=== PATIENT | male | born 1995 | race Caucasian/White ===

== ENCOUNTER 2024-01-25 12:17 | Inpatient (IN) ==
--- NOTE | 2024-01-25 12:56 | Emergency Department Note ---
Impression & Plan Psychosis, Agitation ED Provider Note NAME: BLAISE AMBRIZ AGE: 29 SEX: M : 1995 ARRIVES VIA: Ambulance INFORMANT: [Patient][roommate] ED PROVIDER(S): [Hector Mckeon MD] CHIEF COMPLAINT: Mental health evaluation HISTORY OF PRESENT ILLNESS: The patient is a 29-year-old male who has ADHD. He seemed fine this past weekend. As per his roommate, for 2 days, he has been acting bizarre, he has had some strange behavior. Today, he answered the door naked when the cleaning lady arrived. He made some bizarre comments and the police were called. The patient is unable to provide any history. He is asking to leave. He cannot understand why he is here. He seems agitated and a bit manic. He has been so for uncooperative with the ED staff with regard to laboratory testing. As per his roommate, he did recently switch his ADH meds, no other med changes that he is aware of. No illicit drug use that he is aware of. The patient does socially use alcohol but not heavily. There has been no reported trauma. PMHx/PSHx/Social Hx: See Below PHYSICAL EXAM: GENERAL: Patient is in no acute distress. HEENT: No acute trauma, normocephalic atraumatic, mucous membranes moist, no nasal congestion. NECK: No stridor, no adenopathy, no meningismus, trachea is midline. LUNGS: Clear to auscultation bilaterally, no wheeze, no rhonchi, breath sounds equal. HEART: Without murmurs gallops or rubs, regular rate and rhythm. ABDOMEN: Soft, nontender, no peritonitis. EXTREMITIES: No cyanosis, full range of motion of all the joints without pain or difficulty. NEUROLOGIC: Awake and alert, no acute motor or sensory deficits, no focal weakness. SKIN: No jaundice, no diaphoresis. Psychiatric: Agitated, slightly manic, unable to answer questions or cooperate with the exam. DIFFERENTIAL DIAGNOSIS: Psychosis, medication reaction, intracranial injury, drug abuse, alcohol abuse, among others. EMERGENCY DEPARTMENT PROCEDURES: MEDICAL DECISION MAKING: There is no leukocytosis or concerning anemia. There is a normal platelet count. No renal failure or significant electrolyte abnormality. No concerning liver enzyme elevation. The patient appears to be in a euthyroid state. Urinalysis shows some dehydration, no infection. Aspirin, Tylenol and alcohol levels were undetectable. Urine tox was negative. COVID test was negative. Brain CT showed no acute bleed or mass effect. The patient was quite agitated and was demonstrating psychosis. He did consent to taking oral Haldol and oral Ativan. After this medication, he slept. A 302 petition was initiated given the aggressive behavior and psychosis. When the Haldol and Ativan wore off, the patient awoke and was back to his mental baseline. He was cooperative, he was unsure what exactly had happened. He felt better after sleeping. The patient did feel the need for a psychiatric hospitalization, he did not feel safe with discharge home. He did sign into the hospital voluntarily. The 302 petition was of course then denied. The patient was seen by our psychiatric services, [facility] they accepted him as a voluntary psychiatric admission to their floor. Prior/Outside records/notes reviewed: None Imaging/x-ray results per my interpretation: Chronic Medical/Social conditions affecting care: None Care/Management discussed with: Psychiatry case management. Level of care consideration(s): After review of the information above and other included data: --I believe the patient requires escalation of care to admission DISPOSITION: Voluntary psychiatric admission Past Med/Surg History Problem List (Updated 01/25/24 @ 18:17 by Hector Mckeon MD) Agitation (Acute) Psychosis (Acute) Medical History ADHD Social History Smoking Status: Current every day smoker Feels Safe at Home: Yes Gender Identity: Male Results & Data (ED) Vital Signs Vital Signs - 24 hr 01/25/24 12:20 01/25/24 15:45 Temperature 36.8 C 36.5 C Temperature Source Oral Oral Pulse Rate 110 H Pulse Rate [Apical] 88 Pulse Rhythm [Apical] Regular Pulse Strength [Apical] Normal Respiratory Rate 20 18 Respiratory Effort / Characteristics Non-Labored Non-Labored Respiratory Depth Normal Normal Respiratory Pattern Regular Blood Pressure 153/83 H Blood Pressure [Left Arm] 125/72 Blood Pressure Mean 106 Blood Pressure Mean [Left Arm] 89 Blood Pressure Position [Left Arm] Lying Pulse Oximetry 96 97 Oxygen Delivery Method Room Air Room Air Sepsis Recent Fever Within 48 Hours No Sepsis New/Unexplained Change in Mental Status No Sepsis Action Taken by Nursing No Action Required Home Medications Current Medication List: was personally reviewed by me Laboratory Data Attestation: I reviewed the patient's lab results. 01/25/24 12:05 01/25/24 12:05 Lab Results 01/25/24 01/25/24 Range/Units 12:05 12:30 WBC 9.18 (4.8-10.8) K/ul RBC 5.50 (4.70-6.10) M/uL Hgb 16.7 (14.0-18.0) g/dl Hct 46.9 (42.0-52.0) % MCV 85.3 (80.0-100.0) fL MCH 30.4 (25.0-34.0) pg MCHC 35.6 (32.0-36.0) g/dL RDW Std Deviation 36.0 L (36.4-46.3) fL RDW Coeff of Roderick 11.6 (11.5-14.5) % Plt Count 297 (130-400) K/uL MPV 9.8 (9.4-12.4) fL Immature Gran % (Auto) 0.2 % Neut % (Auto) 64.0 % Lymph % (Auto) 27.2 % [place] % (Auto) 8.1 % Eos % (Auto) 0.1 % Baso % (Auto) 0.4 % Neut # (Auto) 5.87 (1.40-6.50) K/uL Lymph # (Auto) 2.50 (1.20-3.40) K/uL [place] # (Auto) 0.74 H (0.11-0.59) K/uL Eos # (Auto) 0.01 (0.00-0.50) K/uL Baso # (Auto) 0.04 (0.00-0.20) K/uL Immature Gran # (Auto) 0.02 (0.01-0.20) K/uL Sodium 136 (136-145) mmol/L Potassium 3.6 (3.5-5.1) mmol/L Chloride 102 (98-107) mmol/L Carbon Dioxide 27 (21-32) mmol/L Anion Gap 7 (3-11) BUN 12 (6-23) mg/dl Creatinine 0.95 (0.6-1.4) mg/dl Est Cr Clr Drug Dosing 130.5 ml/min eGFR 112.51 BUN/Creatinine Ratio 12.6 (10-20) Glucose 108 H (70-99(Fasting)) mg/dl Calcium 10.4 H (8.6-10.3) mg/dl Total Bilirubin 1.2 H (0.2-1.0) mg/dl AST 25 (13-39) U/L ALT 22 (7-52) U/L Alkaline Phosphatase 55 (34-104) U/L Total Protein 8.5 H (6.0-8.3) gm/dl Albumin 5.3 H (3.4-5.0) gm/dl Globulin 3.2 (2.5-4.0) gm/dl Albumin/Globulin Ratio 1.7 (0.9-2) TSH 3.408 (0.300-4.500) uIu/ml Urine Color Yellow Urine Appearance Clear (Clear) Urine pH 7.5 (4.5-7.5) Ur Specific [place] 1.025 (1.000-1.030) Urine Protein Trace H (Negative) Urine Glucose (UA) Negative (Negative) Urine Ketones Trace H (Negative) Urine Blood Negative (Negative) Urine Nitrite Negative (Negative) Urine Bilirubin Negative (Negative) Urine Urobilinogen Negative (Negative) Ur Leukocyte Esterase Trace H (Negative) Urine WBC (Auto) 0-5 (0-5) /hpf Urine RBC (Auto) 0-2 (0-2) /hpf U Hyaline Cast (Auto) 0-2 (0-2) /lpf U Epithel Cells (Auto) 0-2 (0-2) /hpf Urine Bacteria (Auto) None Seen (None Seen) Salicylates < 3.0 L (3.0-30) mg/dl Urine Opiates Screen Neg (Neg) Ur Methadone, Qual Neg (Neg) Urine Fentanyl Screen Neg (Neg) Acetaminophen < 3 L (10-30) ug/ml Urine Barbiturates Neg (Neg) Ur Phencyclidine (PCP) Neg (Neg) U Amphetamin/Meth Scrn Neg (Neg) MDMA (Ecstasy) Screen Neg (Neg) U Benzodiazepines Scrn Neg (Neg) Ur Cocaine Metabolite Neg (Neg) U Marijuana (THC) Screen Neg (Neg) Ethyl Alcohol mg/dL < 10.0 (<10.0) mg/dl SARS-CoV-2, RNA, NAAT NEGATIVE (NEGATIVE) Administered Medications Acetaminophen (Acetaminophen 325 Mg Tab) 650 mg PO Q4H PRN PRN Reason: Headache or Minor Fever Stop: 02/24/24 16:59 Last Admin: 01/25/24 18:01 Dose: 650 mg Documented By: RB Discontinued Medications Haloperidol (Haloperidol 5 Mg Tab) 10 mg PO NOW STA Stop: 01/25/24 12:49 Last Admin: 01/25/24 13:18 Dose: 10 mg Documented By: HB Lorazepam (Lorazepam 1 Mg Tab) 1 mg SL NOW STA Stop: 01/25/24 12:49 Last Admin: 01/25/24 13:18 Dose: 1 mg Documented By: HB Imaging Data Radiologist's Impression: Head CT 01/25/24 12:48 EXAM: CT Head Without Intravenous Contrast INDICATION: Altered mental status. TECHNIQUE: Axial computed tomography images of the head/brain without intravenous contrast. Sagittal and/or coronal reformats are provided. Sagittal and coronal reformatted images were created and reviewed. This CT exam was performed using one or more of the following dose reduction techniques: automated exposure control, adjustment of the mA and/or kV according to patient size, and/or use of iterative reconstruction technique. COMPARISON: No relevant prior studies available. FINDINGS: Limitations: Streak artifact limits assessment particularly of the convexity. Brain and extra-axial spaces: No abnormality noted. No hemorrhage. No significant white matter disease. No edema. No ventriculomegaly. Bones/joints: No acute changes. Soft tissues: No significant abnormality noted. Vasculature: No acute abnormality noted. Sinuses: No layering fluid in the visualized portions of the paranasal sinuses. Mastoid air cells: No mastoid effusion. Orbits: No significant abnormality noted. IMPRESSION: Allowing for slight limitation, no abnormality noted. ACT 112: Negative or not required by law. Electronically signed by Margaret Odell 01-25-2024 3:02 PM Discharge Plan Visit Data Chief Complaint: Mental Health Evaluation Stated Complaint: MHE ED Provider: Hector Mckeon Discharge Problem: Psychosis, Agitation Patient Disposition: Admitted As Inpatient Condition: Good Discharge Instructions Interventions: ED Discharge Assessment Last Done: 01/25/24 17:16 Discharge Problem: Psychosis Qualifiers: Psychosis type: unspecified psychosis type Qualified Code(s): F29 - Unspecified psychosis not due to a substance or known physiological condition
[2024-01-25 13:07] LABS: Appearance Urine Clear (Clear); Bacteria Urine Automated None Seen (None Seen); Bilirubin Urine Negative (Negative); Blood Urine Negative (Negative); Cast Urine Automated 0-2 /lpf (0-2); Color Urine Yellow; Epithelial Cell Urine Auto 0-2 /hpf (0-2); Glucose Urine UA Negative (Negative); Ketones Urine Trace (Negative); Leukocyte Esterase Urine Trace (Negative); Nitrite Urine Negative (Negative); Protein Urine Trace (Negative); RBC Urine Automated 0-2 /hpf (0-2); Specific Gravity Urine 1.025 (1.000-1.030); Urobilinogen Urine Negative (Negative); WBC Urine Automated 0-5 /hpf (0-5); pH Urine 7.5 (4.5-7.5)
[2024-01-25] MEDS: haloperidoL 5 MG TAB PO STA (13:18)
[2024-01-25] MEDS: LORazepam 1 MG TAB SL STA (13:18)
[2024-01-25 13:33] LABS: Amphetamines+Metham, Urine Neg (Neg); Barbiturates, Urine Neg (Neg); Benzodiazepine, Urine Neg (Neg); Cocaine, Urine Neg (Neg); Fentanyl, Urine Neg (Neg); MDMA (Ecstacy), Urine Neg (Neg); Marijuana, Urine Neg (Neg); Methadone, Urine Neg (Neg); Opiate, Urine Neg (Neg); Phencyclidine, Urine Neg (Neg)
[2024-01-25 14:28] LABS: Basophils # (auto) 0.04 K/uL (0.00-0.20); Basophils % (auto) 0.4 %; Eosinophils # (auto) 0.01 K/uL (0.00-0.50); Eosinophils % (auto) 0.1 %; Hematocrit (blood only) 46.9 % (42.0-52.0); Hemoglobin 16.7 g/dl (14.0-18.0); Immature Granulocytes # (auto) 0.02 K/uL (0.01-0.20); Immature Granulocytes % (auto) 0.2 %; Lymphocytes % (auto) 27.2 %; Mean Corpuscular Hemoglobin 30.4 pg (25.0-34.0); Mean Corpuscular Hgb Conc 35.6 g/dL (32.0-36.0); Mean Corpuscular Volume 85.3 fL (80.0-100.0); Mean Platelet Volume 9.8 fL (9.4-12.4); Monocytes # (auto) 0.74 K/uL (0.11-0.59); Monocytes % (auto) 8.1 %; Neutrophils # (auto) 5.87 K/uL (1.40-6.50); Platelet Count 297 K/uL (130-400); RDW Coefficient of Variation 11.6 % (11.5-14.5); White Blood Count 9.18 K/ul (4.8-10.8)
[2024-01-25 14:42] LABS: Albumin Globulin Ratio 1.7 (0.9-2); Albumin Level 5.3 gm/dl (3.4-5.0); BUN Creatinine Ratio 12.6 (10-20); Bilirubin,Total 1.2 mg/dl (0.2-1.0); Calcium 10.4 mg/dl (8.6-10.3); Creatinine Clr Calc Pharmacy 130.5 ml/min; Globulin 3.2 gm/dl (2.5-4.0); Potassium 3.6 mmol/L (3.5-5.1); Total Protein 8.5 gm/dl (6.0-8.3)
[2024-01-25 14:48] LABS: Acetaminophen < 3 ug/ml (10-30); Salicylate < 3.0 mg/dl (3.0-30)
[2024-01-25 14:57] LABS: Thyroid Stimulating Hormone 3.408 uIu/ml (0.300-4.500)
--- NOTE | 2024-01-25 15:02 | CT Scan Report ---
EXAM: CT Head Without Intravenous Contrast INDICATION: Altered mental status. TECHNIQUE: Axial computed tomography images of the head/brain without intravenous contrast. Sagittal and/or coronal reformats are provided. Sagittal and coronal reformatted images were created and reviewed. This CT exam was performed using one or more of the following dose reduction techniques: automated exposure control, adjustment of the mA and/or kV according to patient size, and/or use of iterative reconstruction technique. COMPARISON: No relevant prior studies available. FINDINGS: Limitations: Streak artifact limits assessment particularly of the convexity. Brain and extra-axial spaces: No abnormality noted. No hemorrhage. No significant white matter disease. No edema. No ventriculomegaly. Bones/joints: No acute changes. Soft tissues: No significant abnormality noted. Vasculature: No acute abnormality noted. Sinuses: No layering fluid in the visualized portions of the paranasal sinuses. Mastoid air cells: No mastoid effusion. Orbits: No significant abnormality noted. IMPRESSION: Allowing for slight limitation, no abnormality noted. ACT 112: Negative or not required by law. Electronically signed by Margaret Odell 01-25-2024 3:02 PM
[2024-01-25] MEDS ORDERED: SODIUM CHLORIDE 0.65% NA SOLN 45 ML (OCEAN) PRN (17:00)
[2024-01-25] MEDS ORDERED: MAGNESIUM HYDROXIDE SUSP 30 ML UDC PO PRN (17:00)
[2024-01-25] MEDS ORDERED: ALUMINUM/MAGNESIUM SUSP 30 ML UDC PO PRN (17:00)
[2024-01-25] MEDS ORDERED: BISMUTH SUBSALICYLATE 262 MG CHEW PO PRN (17:00)
[2024-01-25] MEDS: ACETAMINOPHEN 325 MG TAB PO PRN (18:01)
[2024-01-25] MEDS: OLANZapine 5 MG TABLET PO PRN (19:55)
[2024-01-26] MEDS ORDERED: OLANZAPINE 2.5 MG TAB PO PRN (09:27)
--- NOTE | 2024-01-26 09:28 | History & Physical ---
Date of Service January 26, 2024 Impression / Recommendations Impression FELICIANO AMBRIZ is a 29-year-old man who currently lives in [place], has a history of anxiety, depression and ADHD, and was admitted on 01/25/24 17:01 on a 201 voluntary commitment for bizarre behavior, concern for acute gregory. Diagnostically consistent with unspecified psychosis with differential including acute manic episode 2/2 BPAD vs brief psychotic episode vs substance-induced psychosis (denies any recent illicit substance use and UDS negative but reports nicotine use and wonder about delta 8). This morning had episode of lightheadedness and possible pre-syncopal event, BP and HR were low and so out of an abundance of caution rapid response code was called. By the time the code team arrived his HR had significantly improved. Discussed with medical providers and consensus that presentation very likely due to orthostatic hypotension from side effect of haldol, ativan and then olanzapine prn dose last evening and seemingly limited recent sleep and self- care due to psychiatric symptoms. EKG done which showed sinus bradycardia, labwork and ED workup yesterday reassuring, blood glucose checked and normal. Feliciano feels comfortable remaining on the psychiatric floor and no indication at this time for need nor criteria for medical admission. Will continue with frequent vital sign assessments and he agrees to remain in bed and drink electrolyte beverages. Given orthostatic hypotension and some improvement in psychosis today after sleeping overnight will not start any scheduled medications for now. Should BP or HR drop again then will consult hospitalist service and re-evaluate criteria for medical admission. Discussed medication treatment options in detail and reason for discontinuation of SSRI and atomoxetine due to potential to worsen and trigger episodes of gregory and discontinuation of prior to admission propranolol due to low BP mid-morning (he did not get a dose last evening nor today either). He is agreeable with this. Will have very low dose olanzapine available should acute agitation/aggression occur but with goal of avoiding use if possible given orthostatic response this morning. MNPR-psychosis with hypersexual comments, recent disrobing prompting admission Overall I spent a total of 85 minutes for this admission including review of chart records, review of labwork, direct evaluation of the patient, counseling the patient, ordering medication, risk assessment, discussion with the psychiatric liason RN and documentation in the electronic health record and discussion with medical providers as part of rapid response code. (1) Psychosis: Psychosis type: unspecified psychosis type Qualified Code(s): F29 - Unspecified psychosis not due to a substance or known physiological condition (2) Hypersexuality: (3) Agitation: (4) Insomnia: (5) Orthostatic hypotension: (6) Bradycardia: (7) Bipolar I disorder with gregory: Plan 01/26/2024: The patient was admitted to the [facility] ([facility]) on q15 min checks (behavioral with suicide precautions) for safety. The patient will participate in group, recreational, and milieu therapies and will be offered additional individual and family sessions as clinically appropriate. -Discontinue prior to admission sertraline, atomoxetine and propranolol -olanzapine 2.5mg BID po prn for acute agitation/aggression -Vital signs t2kverc for next 12 hours and then back to daily vital signs if he continues to show stability -continue to monitor intake, encourage fluids. Counseled on need to change positions slowly which he is agreeable to do, has call horvath to alert nursing to any needs -Low threshold for hospitalist consult should clinical symptoms change or vital sign abnormalities emerge Inventory Assets Strengths: supportive relationships, willing to get treatment Needs: safety and stabilization, medication adjustment, additional coping skills, increased outpatient services Suicide Risk Level Suicide Risk Level: Moderate (q15 min suicide checks) (denies SI but with psychosis and bizarre behaviors prior to admission, feels safe in the hospital, feels able to ask for support ) Suicide Risk Level Comments: Risk Factors Assessment Male: Yes : Yes Do You Have Access To A Gun?: No Health Problems: No Mental Health Diagnoses: Yes Substance Use Disorders: No Previous Attempt: No Family History of Suicide: No Previous Psychiatric Hospitalization: No Hopelessness: No Protective Factors Assessment Employed: Yes ([employer]) Stable Relationships: Yes Supportive Family: Yes Psychiatric History Identifying Data FELICIANO AMBRIZ is a 29-year-old man who currently lives in [place], has a history of anxiety, depression and ADHD, and was admitted on 01/25/24 17:01 on a 201 voluntary commitment for bizarre behavior, concern for acute gregory. Chief Complaint "I don't remember a ton, I was losing my mind a little bit". History of Present Illness Feliciano presents for psychiatric admission for sudden bizarre behavior after a few days of very poor sleep. He doesn't have much memory of events leading to hospitalization but recalls that his roommate was there and then police arrived. He confirms making some type of sexual comment to a cleaning lady who came to his apartment and that later her came to the door and he answered the d oor while nude and this man took a picture of him. He recalls only sleeping about an hour per night on Tuesday and Tuesday prior to admission. Denies any significant recent stressors. Only recent change was increase of his sertraline dose from 25mg daily to 50mg daily on 01/20/2024 and he was also started on atomoxetine at that time. While in the emergency department he was observed to be agitated and with symptoms of gregory and was given haldol and ativan with quite significant improvement. This morning, he reported increased lightheadedness and was observed to have low BP and low heart rate. He reported feeling sedated and faint but denied any other complaints. He drank more water and ate some food and started to feel better. He was agreeable with lying in his bed and was glad to be able to sleep and rest more. He is currently prescribed psychiatric medications of sertraline 50mg daily, propranolol prn for anxiety and atomoxetine. Psychiatric ROS notable for history of symptoms of gregory and psychosis about 3 years ago, he describes for about a week he thought "God was telling me to break up with my fiance and I didn't sleep much and I went on kind of christianity fast for a week without eating" but then his symptoms resolved without requiring hospitalization. Depression started in college, long history of anxiety. Additional information per ED CM note on 01/25/2024: "Patient reports to ED via EMS with roommate. Patient uncooperative with Dr. Mckeon. Per EMS report, patient answered the door for the cleaning lady naked, making inappropriate sexual comments to her. Patient spoke with cleaning lady's and informed him that his was patient's now. Patient's roommate was present. Reports patient's behaviors have been "off" for a few days now, he has been living with patient for 1.5 years and his current behaviors are unusual for him. Per roommate, patient's ADHD medication was just changed. Patient interrupted roommate as he was trying to explain patient's current situation. Patient appeared manic and tangential. Patient denied D/A use currently. Patient stated several times he "has no idea what's going on." He states he felt like this whole experience was "like a dance." Patient denies any current health issues. He denies any current stressors. Patient was religiously preoccupied. He stated his mother was on her way, but that she lives in the [facility]. He then stated he felt better being in the presence of CM and his roommate as he felt he was with the "Father, son and holy spirit." " Additional information per psych liason plastic surgeon note last evening on 01/25/2024: "Patient up and out of bed. Asking this nurse what he was able to do? Gave tour of activity room and while showing patient the activities, he said, "I feel weird asking this but is there anyway I could have my sexual needs met here? "Is there a way you could do that for me? Patient redirected and medication given by charge nurse." Past Psychiatric History Current Psychiatric Diagnosis: Depression, Anxiety, ADHD Outpatient Services: Seema Dale for psychiatry at [facility]. Therapy with Izaiah at [facility]. Previous Psych Admissions: none Do You Have Access To A Gun?: No History of Previous Suicide Attempt: No Past Medication Trials: none Past Head Trauma/Neuro History History of Concussion/Seizure: No Allergies Allergy/AdvReac Type Severity Reaction Status Date / Time No Known Allergies Allergy Unverified 01/26/24 12:16 Home Medications Medication Instructions Recorded Confirmed Type atomoxetine 25 mg capsule 25 mg PO DAILY 01/26/24 01/26/24 History propranolol 10 mg tablet 10 mg PO BID 01/26/24 01/26/24 History sertraline 50 mg tablet (Zoloft) 50 mg PO DAILY 01/26/24 01/26/24 History Family History Family History of: Depression and Doesn't Know Family Mental Health History Comment: Feels mother has MH issues but does not know Alcohol History Hx of Alcohol Use Over the Past 12 Months: No AUDIT Total Score: 1 Smoking Use Have You Smoked or Used Tobacco Products in the Last 30 Days: Refused to Answer Smoking Status: Current every day smoker Substance History Hx of Prescription Med Misuse Over the Past 12 Months: No Hx of Over the Counter Med Misuse Over the Past 12 Months: No Hx of Inhalent Misuse Over the Past 12 Months: No Hx of Organic Substance Use Over the Past 12 Months: No Hx of Illegal Substances/Street Drug Use Over Past 12 Months: No Problems as a Result of Past Substance Use: None Identified Personal History Living Arrangements: Apartment Highest Grade Completed: College 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) Beliefs That Will Affect Care: None Patient History Medical History ADHD Social History Smoking Status: Current every day smoker Preferred Language: Surinamese Communication Ability: Effective Humanities Teacher Required: No Beliefs That Will Affect Care: None Feels Safe at Home: Yes Gender Identity: Male Assistive Devices: None Review of Systems Review of Systems: All systems reviewed & are unremarkable except as noted in HPI & below Physical Exam Psychiatric: Orientation: alert and oriented x 3 Apperance: appropriately dressed and appropriately groomed Eye Contact: good eye contact Motor Behavior: no abnormal motor movements Speech: normal rate/rhythm/volume of speech Affect: + anxious affect and + constricted affect Mood: + anxious mood Thought Process: + looseness of associations Thought Content: + preoccupation (sexual ) and + delusions Suicidal Thoughts: denies suicidal thoughts, denies suicidal plan and denies suicidal intent Homicidal Thoughts: denies homicidal thoughts Hallucinations: no auditory hallucinations and no visual hallucinations Cognition: recent memory grossly intact, remote memory grossly intact, attention grossly intact and language grossly intact Estimated Intelligence: consistent with education level Insight: + limited insight Judgment: + limited judgement Vital Signs (Past 24 Hours): Last Vital Signs Temp 36.8 C 01/26/24 06:43 Pulse 87 01/26/24 06:47 Resp 16 01/26/24 06:43 BP 143/82 H 01/26/24 06:47 Pulse Ox 99 01/25/24 18:18 O2 Del Method Room Air 01/25/24 18:18 Exam Statement: A physical exam was performed in the ED by Dr. Mckeon for the purposes of medical clearance. I accept that physical as correct and adequate for the purposes of the inpatient physical exam. Results & Data ([facility]) Laboratory Results Laboratory Results - last 24 hr 01/25/24 01/25/24 01/26/24 12:05 12:30 09:11 WBC 9.18 RBC 5.50 Hgb 16.7 Hct 46.9 MCV 85.3 MCH 30.4 MCHC 35.6 RDW Std Deviation 36.0 L RDW Coeff of Roderick 11.6 Plt Count 297 MPV 9.8 Immature Gran % (Auto) 0.2 Neut % (Auto) 64.0 Lymph % (Auto) 27.2 Burke % (Auto) 8.1 Eos % (Auto) 0.1 Baso % (Auto) 0.4 Neut # (Auto) 5.87 Lymph # (Auto) 2.50 Burke # (Auto) 0.74 H Eos # (Auto) 0.01 Baso # (Auto) 0.04 Immature Gran # (Auto) 0.02 Sodium 136 Potassium 3.6 Chloride 102 Carbon Dioxide 27 Anion Gap 7 BUN 12 Creatinine 0.95 Est Cr Clr Drug Dosing 130.5 eGFR 112.51 BUN/Creatinine Ratio 12.6 Glucose 108 H POC Glucose 102 H Calcium 10.4 H Total Bilirubin 1.2 H AST 25 ALT 22 Alkaline Phosphatase 55 Total Protein 8.5 H Albumin 5.3 H Globulin 3.2 Albumin/Globulin Ratio 1.7 TSH 3.408 Urine Color Yellow Urine Appearance Clear Urine pH 7.5 Ur Specific [place] 1.025 Urine Protein Trace H Urine Glucose (UA) Negative Urine Ketones Trace H Urine Blood Negative Urine Nitrite Negative Urine Bilirubin Negative Urine Urobilinogen Negative Ur Leukocyte Esterase Trace H Urine WBC (Auto) 0-5 Urine RBC (Auto) 0-2 U Hyaline Cast (Auto) 0-2 U Epithel Cells (Auto) 0-2 Urine Bacteria (Auto) None Seen Salicylates < 3.0 L Urine Opiates Screen Neg Ur Methadone, Qual Neg Urine Fentanyl Screen Neg Acetaminophen < 3 L Urine Barbiturates Neg Ur Phencyclidine (PCP) Neg U Amphetamin/Meth Scrn Neg MDMA (Ecstasy) Screen Neg U Benzodiazepines Scrn Neg Ur Cocaine Metabolite Neg U Marijuana (THC) Screen Neg Ethyl Alcohol mg/dL < 10.0 SARS-CoV-2, RNA, NAAT NEGATIVE Current Inpatient Medications Current Inpatient Medications: Current Inpatient Medications Acetaminophen (Acetaminophen 325 Mg Tab) 650 mg PO Q4H PRN PRN Reason: Headache or Minor Fever Stop: 02/24/24 16:59 Last Admin: 01/25/24 18:01 Dose: 650 mg Al Hydrox/Mg Hydrox/Simethicone (Aluminum/Magnesium Susp 30 Ml Udc) 30 ml PO Q4H PRN PRN Reason: GI Upset Stop: 02/24/24 16:59 Bismuth Subsalicylate (Bismuth Subsalicylate 262 Mg Chew) 2 tab PO Q30M PRN PRN Reason: Loose Stool/Diarrhea Stop: 02/24/24 16:59 Hydroxyzine HCl (Hydroxyzine Hcl 25 Mg Tab) 50 mg PO HSZ PRN PRN Reason: Insomnia Stop: 02/24/24 16:59 Hydroxyzine HCl (Hydroxyzine Hcl 25 Mg Tab) 25 mg PO Q4H PRN PRN Reason: Anxiety Stop: 02/24/24 16:59 Magnesium Hydroxide (Magnesium Hydroxide Susp 30 Ml Udc) 30 ml PO DAILY PRN PRN Reason: Constipation Stop: 02/24/24 16:59 Olanzapine (Olanzapine 2.5 Mg Tab) 2.5 mg PO BID PRN PRN Reason: Agitation Stop: 02/24/24 20:59 Sodium Chloride (Sodium Chloride 0.65% Na Soln 45 Ml ([place])) 1 - 2 sprays NA PRN PRN PRN Reason: Nasal Dryness/Congestion Stop: 02/24/24 16:59
--- OUTSIDE RECORDS SUMMARY | 2024-01-26 11:36 | External Medical Summary | Continuity of Care Document ---
Author Name Unknown Organization [address] Address [address] [place] [address] [place], [place] [id number] Care Team Providers Care Bowling Alley Attendant Name Role Phone Min Marylu Garcia Primary Care P hysician [phone] [id number] Date(s): 01/18/24 - 01/18/[address] [place] [address], [address] [place] [address] [phone] Discharge Disposition: Home or Self Care Attending Physician: FEDE Dale Katy Marie Referring Physician: FEDE Dale Katy Marie Allergies, Adverse Reactions, Alerts No Known Allergies Immunizations Given and Recorded Vaccine Date Status Refusal Reason influenza virus vaccine, inactivated 1 03/21/23 Gi arminda tetanus/diphtheria/pertuss, acel (Tdap) 04/28/22 R ecorded 1Result Comment: Christine Howard, Radha Medications propranolol 10 mg oral tablet TAKE 1-2 TABLETS BY MOUTH UP TO TWICE A DAY NEEDED FOR SEVERE ANXIETY Start Date: 01/18/24 Status: Ordered sertraline 50 mg oral tablet Start: 01/18/24 4:46:00 PM EST, 1 tab, PO, Daily Start Date: 01/18/24 Status: Ordered Zithromax Z-Barry 250 mg oral tablet Start: 01/19/24 4:40:00 PM EST, See Comments, PO, Daily, Disp# 6 tab, 500 mg (2 tabs) on day 1, then 250 mg (1 tab) on days 2-5, Pharmacy: [facility]/pharmacy #[id number] Start Date: 01/19/24 Status: Ordered Mental Status 01/18/24 Barriers to Learning one year None evide nt Mandatory Health Literacy Documentation Yes Health Literacy Communication Barriers N ever Primary Language Indian Problem List Condition Confirmation Course Effective Dates Status Health atus Informant Tobacco user Confirmed Active Vital Signs Most recent to oldest [Reference Range]: 1 Patient Weight 85.0 kg (01/18/24 4:51 PM) Temperature [36.5-37.9 DegC] 36.9 DegC (01/18/24 4:49 PM) Blood Pressure 130/80mmHg (01/18/24 4:51 PM) Social History Social History Type Response Smoking Status Current some day hea vy smoker Sex Male Sex Representation Male (finding) Patient Care team information Care Team Personnel Name: DO Beckman Amanda Position: Resident Member Role: Lifetime Relationship Address: [address] [facility] [address] [place] [address] Name: Mechelle Garcia DO, Mariana Annette Position: Physician - Family Med Member Role: Primary Care Provider Address: [address] [facility] [address] [place] [address] [place]
--- OUTSIDE RECORDS SUMMARY | 2024-01-26 11:36 | External Medical Summary | Continuity of Care Document ---
Author Name Unknown Organization [address] Address [address] [place], [place] [address], [place] [id number] Care Team Providers Care Tankroom Tender Name Role Phone Marylu Zavala Primary Care P lucien [phone] Encounter [facility] [id number] Date(s): 01/19/24 - 01/19/[address] [place] [address], [address] [place] [address] [phone] Encounter Diagnosis Cough(Discharge Diagnosis) - 01/19/24 Fever(Discharge Diagnosis) - 01/19/24 Walking pneumonia(Discharge Diagnosis) - 01/19/24 Discharge Disposition: Home or Self Care Attending Physician: DO Blackwood Mehwish Referring Physician: DO Blackwood Mehwish Allergies, Adverse Reactions, Alerts No Known Allergies Assessment and Plan Extracted from: Title:Office Visit Note - APSO Author:DO Blackwood Mehwish Date:01/19/24 1.Cough 2.Fever 3.Walking pneumonia Acute, uncomplicated illness/injury Goal:Resolution Data:_ Plan: -Given his ongoing symptoms as well as known exposure, we discussedempiric treatment with azithromycinand he is in agreement with this. -Additionally, recommend that he continue [id number] treatmentsincluding Mucinex, cough drops/lozenges, DayQuil/NyQuilas well as honey - Encouraged rest, plenty of fluids, and appropriate nutrition -He was advised to follow-up if symptoms do not improve Immunizations Given and Recorded Vaccine Date Status Refusal Reason influenza virus vaccine, inactivated 1 03/21/23 Gi arminda tetanus/diphtheria/pertuss, acel (Tdap) 04/28/22 R ecorded 1Result Comment: Christine Anita, Rn Medications propranolol 10 mg oral tablet TAKE [...] mg (1 tab) on days 2-5, Pharmacy: [facility]/pharmacy #[id number] Start Date: 01/19/24 Status: Ordered Mental Status 01/19/24 Barriers to Learning one year None evide nt Mandatory Health Literacy Documentation Yes Health Literacy Communication Barriers N ever Primary Language Italian Problem List Condition Confirmation Course Effective Dates Status Health St atus Informant Tobacco user Confirmed Active Diagnosis Diagnosis Type Effective Dates Health Status Cl inical Service Informant Walking pneumonia Discharge Diagnosis 01/19/24 Non-Specified Cough Discharge Diagnosis 01/19/24 Non-Specified Fever Discharge Diagnosis 01/19/24 Non-Specified Vital Signs Most recent to oldest [Reference Range]: 1 Patient Weight 84 kg (01/19/24 4:05 PM) Temperature [36.5-37.9 DegC] 37 DegC (01/19/24 4:05 PM) Heart Rate 80 bpm (01/19/24 4:05 PM) Respiratory Rate 20 br/min (01/19/24 4:05 PM) Blood Pressure 140/90mmHg (01/19/24 4:05 PM) Social History Social History Type Response Smoking Status Current some day hea vy smoker Sex Male Sex Representation Male (finding) [facility] Outpt Note * DO Blackwood Mehwish: PERFORM Event Display: [facility] Outpt Note Authored Date: Assessment/Plan 1.Cough 2.Fever 3.Walking pneumonia Acute, uncomplicated illness/injury Goal:Resolution Data:_ Plan: -Given his ongoing symptoms as well as known exposure, we discussedempiric treatment with azithromycinand he is in agreement with this. -Additionally, recommend that he continue [id number]-[id number] treatmentsincluding Mucinex, cough drops/lozenges, DayQuil/NyQuilas well as honey - Encouraged rest, plenty of fluids, and appropriate nutrition -He was advised to follow-up if symptoms do not improve Chief Complaint congestion, runny nose, mild cough x 2 weeks, most recent fever two days ago, pneumonia exposure History of Present Illness Feliciano is [id number] male seen for acute visitfor ongoing illness symptoms. Symptoms includessniffles, coughing,chest congestion, fever. He notes that he was exposed to someone that was alsodiagnosed with walking pneumoniashortly after they had gotten lunch together. He notes that over the past 2 weekshis symptomshave persisted. He has been able to continue daily function, but feels really fatigued has a decreased appetite. He notes that when he issleeping/laying flat he does feel like it is harder to take a full deep breath then. It is takinghim tolonger follow sleep. He has not tried any [id number] medications. Physical Exam Vitals & Measurements T:37C HR:80(Monitored) RR:20 BP:140/90 SpO2:98% WT:84.000kg(Dosing) WT:84kg PHQ2 Data(Data Documented on:01/19/2024 16:03) Emotional health assessment NEGATIVE GENERAL APPEARANCE: The patient is alert, oriented and in no acute distress. VITALS: As above. HEENT: Head is normocephalic/atraumatic. TMs clear bilaterally. Oropharynx with no tonsillar swelling or exudates, no post nasal drip visualized. Nasal turbinates wnl. NECK: Supple without lymphadenopathy. Thyroid wnl. CARDIOVASCULAR: Regular rate and rhythm, no m/r/g. LUNGS: Clear to auscultation bilaterally.No wheezes/rales/rhonchi. EXTREMITIES: No cyanosis, clubbing or edema NEUROLOGICAL: Grossly non-focal exam. SKIN: Warm and dry without any rash. Problem List/Past Medical History Ongoing Tobacco user Medications azithromycin(Zithromax Z-Barry 250 mg oral tablet), See Comments, PO, Daily propranolol(propranolol 10 mg oral tablet) sertraline(sertraline 50 mg oral tablet), 50 mg= 1 tab, PO, Daily Allergies NKA Social History Smoking Status Current some day heavy smoker Family History Breast cancer: Mother and MGM. Health Status Family Member(s) Immunizations Vaccine Date Status influenza virus vaccine, inactivated 03/21/2023 Given Comments : Christine Howard Rn tetanus/diphtheria/pertuss, acel (Tdap) 04/28/2022 Recorded Recommendations Health Maintenance Pending(in the next year) OverDue Adult Influenza Vaccine due08/28/23and every 1year Due Adult COVID-19 Vaccination due01/19/24Unknown Frequency Adult Social Determinants of Health Screening due01/19/24Unknown Frequency Hepatitis C Screening due01/19/24One-time only Lipid Screening due01/19/24Unknown Frequency Satisfied(in the past 1 year) Satisfied Adult Influenza Vaccine on03/21/23.Satisfied by DAQUAN Gregorio Angela Body Mass Index on07/04/23.Satisfied by DAQUAN Pulliam Angela Electronic Signature on File CC: Marylu Garcia DO [address] [place] [address] Electronically Reviewed/Signed by: Maritza Blackwood DO Author Signature Dt/Tm:01/19/2024 09:08 PM Division of Sports Medicine MM Patient Care team information Care Team Personnel Name: DO Beckman Amanda Position: Resident Member Role: Lifetime Relationship Address: [address] [address] [place] Name: Mehcelle Garcia DO, Mariana Annette Position: Physician - Family Med Member Role: Primary Care Provider Address: [address] [place] [address] [place]
[2024-01-26] MEDS: hydrOXYzine HCl 25 MG TAB PO PRN (21:16)
--- NOTE | 2024-01-27 09:10 | Psychiatric Progress Note ---
Date of Service January 27, 2024 Impression / Recommendations Impression FELICIANO AMBRIZ is a 29-year-old man who currently lives in [place], has a history of anxiety, depression and ADHD, and was admitted on 01/25/24 17:01 on a 201 voluntary commitment for bizarre behavior, concern for acute gregory. Diagnostically consistent with unspecified psychosis with differential including acute manic episode 2/2 BPAD vs brief psychotic episode. A: Lessening of gregory, appropriate behaviors today and slept well overnight. Today reported possible fall yesterday prior to code purple yesterday morning. No evidence for neurological changes nor other associated symptoms to indicate need for head imaging, discussed this with Feliciano and risks of radiation exposure and he agrees with preference to avoid any imaging at this time. He agrees to alert nursing if his headache worsens or does not improve or if he develops any other new symptoms or changes. No further signs of orthostatic hypotension but given previous response to possible anticholinergic effects of antipsychotics will order risperidone as alternative prn for acute gregory/psychosis as slightly lower risk for orthostasis compared with olanzapine. Mood Disorder questionnaire consistent with diagnosis of BPAD. Discussed medication treatment options in detail. Discussed risks, benefits and alternatives. Patient would like to start and consented to lamictal for bipolar disorder for mood stabilization and depression. Reviewed side effects including but not limited to: need for slow titration, potential for fatal Brooks's- Royal rash reaction, need to contact provider if ever misses more than 3 days as may need to restart at initial dose due to risk for toxic rash. MNPR-psychosis with recent hypersexual comments, recent disrobing prompting admission Overall, I spent a total of 35 minutes on this case including meeting with the patient, reviewing the chart, nursing report, multidisciplinary team meeting, orders, and documentation. (1) Bipolar I disorder with gregory: (2) Psychosis: (3) Hypersexuality: (4) Agitation: (5) Insomnia: (6) Orthostatic hypotension: (7) Bradycardia: Plan 01/27/2024: -Start lamictal 25mg HS po -Risperidone 0.5mg BID prn ODT for agitation/psychosis -Vitals q0600 daily 01/26/2024: The patient was admitted to the [facility] ([facility] health unit) on q15 min checks (behavioral with suicide precautions) for safety. The patient will participate in group, recreational, and milieu therapies and will be offered additional individual and family sessions as clinically appropriate. -Discontinue prior to admission sertraline, atomoxetine and propranolol -olanzapine 2.5mg BID po prn for acute agitation/aggression -Vital signs [id number] for next 12 hours and then back to daily vital signs if he continues to show stability -continue to monitor intake, encourage fluids. Counseled on need to change positions slowly which he is agreeable to do, has call [facility] to alert nursing to any needs -Low threshold for hospitalist consult should clinical symptoms change or vital sign abnormalities emerge Inventory Assets Strengths: supportive relationships, willing to get treatment Needs: safety and stabilization, medication adjustment, additional coping skills, increased outpatient services Suicide Risk Level Suicide Risk Level: Moderate (q15 min suicide checks) (denies SI but with psychosis and bizarre behaviors prior to admission, feels safe in the hospital, feels able to ask for support ) Suicide Risk Level Comments: Risk Factors Assessment Male: Yes : Yes Do You Have Access To A Gun?: Yes Health Problems: No Mental Health Diagnoses: Yes Substance Use Disorders: No Previous Attempt: No Family History of Suicide: No Previous Psychiatric Hospitalization: No Hopelessness: No Protective Factors Assessment Employed: Yes ([employer]) Stable Relationships: Yes Supportive Family: Yes Interval History Identifying Information FELICIANO AMBRIZ is a 29-year-old man who currently lives in [place], has a history of anxiety, depression and ADHD, and was admitted on 01/25/24 17:01 on a 201 voluntary commitment for bizarre behavior, concern for acute gregory. Chief Complaint "I'm ok, I have a little bit of a headache". Review of Systems Sleep Information Total Hours of Sleep: 8 Meal Information Percent Meal Consumed - Breakfast: 25 Percent Meal Consumed - Lunch: 100 Percent Meal Consumed - Dinner: 95 Nutrition Comment: Subjective Subjective Patient was seen & assessed and interval progress reviewed with treatment team nursing and social work. This morning he reported wondering about having a concussion as thought maybe he fell yesterday. Reports slight headache today. Estimates he may have been on the floor yesterday for 5 minutes. Vital signs have remained stable. Slightly more anxious today. No neurological changes on nursing assessment, no head pain, no dizziness, no light sensitivity, ate breakfast. His parents visited yesterday. Took Vistaril prn at HS and slept 8 hours. Attended groups, was appropriate. Rated his mood as "anxious". Today reports mild headache but feels this is improving. Confirmed no other neurological symptoms other associated symptoms. Confirmed no recent substance use, only nicotine use is cigars maybe once per month. He liked the Vistaril and found it helpful for sleep and anxiety. Completed Mood Disorder questionnaire. Physical Exam Psychiatric Orientation: alert and oriented x 3 Apperance: appropriately dressed and appropriately groomed Eye Contact: good eye contact Motor Behavior: no abnormal motor movements Speech: normal rate/rhythm/volume of speech Affect: + constricted affect Mood: + anxious mood Thought Process: goal directed thought process Thought Content: reality based without delusions Suicidal Thoughts: denies suicidal thoughts, denies suicidal plan and denies suicidal intent Homicidal Thoughts: denies homicidal thoughts Hallucinations: no auditory hallucinations and no visual hallucinations Cognition: recent memory grossly intact, remote memory grossly intact, attention grossly intact and language grossly intact Estimated Intelligence: consistent with education level Insight: + limited insight Judgment: + limited judgement Vital Signs (Past 24 Hours) Last Vital Signs Temp 36.5 C 01/27/24 06:00 Pulse 77 01/27/24 06:41 Resp 16 01/27/24 06:00 BP 120/88 01/27/24 06:41 Pulse Ox 99 01/27/24 06:00 O2 Del Method Room Air 01/27/24 06:00 Results & Data ([facility]) Laboratory Results Laboratory Results - last 24 hr 01/26/24 09:11 POC Glucose 102 H Current Inpatient Medications Current Inpatient Medications: Current Inpatient Medications Acetaminophen (Acetaminophen 325 Mg Tab) 650 mg PO Q4H PRN PRN Reason: Headache or Minor Fever Stop: 02/24/24 16:59 Last Admin: 01/25/24 18:01 Dose: 650 mg Al Hydrox/Mg Hydrox/Simethicone (Aluminum/Magnesium Susp 30 Ml Udc) 30 ml PO Q4H PRN PRN Reason: GI Upset Stop: 02/24/24 16:59 Bismuth Subsalicylate (Bismuth Subsalicylate 262 Mg Chew) 2 tab PO Q30M PRN PRN Reason: Loose Stool/Diarrhea Stop: 02/24/24 16:59 Hydroxyzine HCl (Hydroxyzine Hcl 25 Mg Tab) 50 mg PO HSZ PRN PRN Reason: Insomnia Stop: 02/24/24 16:59 Last Admin: 01/26/24 21:16 Dose: 50 mg Hydroxyzine HCl (Hydroxyzine Hcl 25 Mg Tab) 25 mg PO Q4H PRN PRN Reason: Anxiety Stop: 02/24/24 16:59 Magnesium Hydroxide (Magnesium Hydroxide Susp 30 Ml Udc) 30 ml PO DAILY PRN PRN Reason: Constipation Stop: 02/24/24 16:59 Olanzapine (Olanzapine 2.5 Mg Tab) 2.5 mg PO BID PRN PRN Reason: Agitation Stop: 02/24/24 20:59 Sodium Chloride (Sodium Chloride 0.65% Na Soln 45 Ml ([place])) 1 - 2 sprays NA PRN PRN PRN Reason: Nasal Dryness/Congestion Stop: 02/24/24 16:59 Mental Health & Subst Abuse Tx Therapist Name of Therapist: Izaiah Mares Date of Therapist Appointment: 02/01/24 Consulting Services Manager Name of Consulting Services Manager: N/A Post Discharge Appointments Primary Care Physician Name Of Family Doctor/PCP: Dr. Braden (2) Psychosis Psychosis type: unspecified psychosis type Qualified Code(s): F29 - Unspecified psychosis not due to a substance or known physiological condition
[2024-01-27] MEDS ORDERED: risperiDONE ODT 0.5 MG SOLTAB PO PRN (14:01)
[2024-01-27] MEDS: hydrOXYzine HCl 25 MG TAB PO PRN (19:37)
[2024-01-27] MEDS: lamoTRIgine 25 MG TAB PO SCH (21:08)
--- NOTE | 2024-01-28 07:08 | Electrocardiogram Report ---
Test Reason : Blood Pressure : */* mmHG Vent. Rate : 56 BPM Atrial Rate : 56 BPM P-R Int : 158 ms QRS Dur : 112 ms QT Int : 420 ms P-R-T Axes : 30 75 49 degrees QTcB Int : 405 ms Sinus bradycardia with marked sinus arrhythmia Otherwise normal ECG No previous ECGs available Confirmed by Ish Michael ([id number]) on 01/28/2024 7:08:46 AM Referred By: REFERRED SELF Confirmed By: Ish Michael
--- NOTE | 2024-01-28 12:35 | Psychiatric Progress Note ---
Date of Service January 28, 2024 Impression / Recommendations Impression BLAISE AMBRIZ is a 29-year-old man who currently lives in [place], has a history of anxiety, depression and ADHD, and was admitted on 01/25/24 17:01 on a 201 voluntary commitment for bizarre behavior, concern for acute gregory. A: Presentation consistent with bipolar 1 disorder likely second episode of gregory. Concern for major depressive episodes in the past. He presented recent decreased need for sleep, high energy, hypersexuality, bahai preoccupation and delusions with rapid improvement with initiation of antipsychotic and sleep medication. Concern for higher risk of orthostatic hypotension as patient presented symptoms even in the absence of medications. He was counseled on behavioral strategies to limit orthostatic hypotension and falls. Would benefit from initiation of antipsychotic for prevention of future gregory. Plan to start Abilify; medication side effects and adverse effects discussed with patient and agreeable. Continue lamotrigine. Patient was educated about his diagnosis and advised to avoid serotonin antidepressants in the near future. MNPR-psychosis with recent hypersexual comments, recent disrobing prompting admission Overall, I spent a total of 40 minutes on this case including meeting with the patient, reviewing the chart, nursing report, multidisciplinary team meeting, orders, and documentation. (1) Bipolar I disorder with gregory: (2) Psychosis: (3) Hypersexuality: (4) Agitation: (5) Insomnia: (6) Orthostatic hypotension: (7) Bradycardia: Plan 01/28/2024: Start aripiprazole 5 mg daily. Continue lamotrigine 25 mg daily. 01/27/2024: -Start lamictal 25mg HS po -Risperidone 0.5mg BID prn ODT for agitation/psychosis -Vitals q0600 daily 01/26/2024: The patient was admitted to the [facility] ([facility] health unit) on q15 min checks (behavioral with suicide precautions) for safety. The patient will participate in group, recreational, and milieu therapies and will be o ffered additional individual and family sessions as clinically appropriate. -Discontinue prior to admission sertraline, atomoxetine and propranolol -olanzapine 2.5mg BID po prn for acute agitation/aggression -Vital signs [id number] for next 12 hours and then back to daily vital signs if he continues to show stability -continue to monitor intake, encourage fluids. Counseled on need to change posit ions slowly which he is agreeable to do, has call [facility] to alert nursing to any needs -Low threshold for hospitalist consult should clinical symptoms change or vital sign abnormalities emerge Inventory Assets Strengths: supportive relationships, willing to get treatment Needs: safety and stabilization, medication adjustment, additional coping skills, increased outpatient services Suicide Risk Level Suicide Risk Level: Moderate (q15 min suicide checks) (denies SI but with psychosis and bizarre behaviors prior to admission, feels safe in the hospital, feels able to ask for support ) Suicide Risk Level Comments: Risk Factors Assessment Male: Yes : Yes Do You Have Access To A Gun?: Yes Health Problems: No Mental Health Diagnoses: Yes Substance Use Disorders: No Previous Attempt: No Family History of Suicide: No Previous Psychiatric Hospitalization: No Hopelessness: No Protective Factors Assessment Employed: Yes ([employer]) Stable Relationships: Yes Supportive Family: Yes Interval History Identifying Information BLAISE AMBRIZ is a 29-year-old man who currently lives in [place], has a history of anxiety, depression and ADHD, and was admitted on 01/25/24 17:01 on a 201 voluntary commitment for bizarre behavior, concern for acute gregory. Chief Complaint "Bipolar episode is what I was told" Review of Systems Sleep Information Total Hours of Sleep: 7.5 Meal Information Percent Meal Consumed - Breakfast: 100 Percent Meal Consumed - Lunch: 100 Percent Meal Consumed - Dinner: 100 Subjective Subjective Patient was seen & assessed and interval progress reviewed with treatment team nursing and social work Patient reports losing his mind. Reports recent episode had 2 to 3 days of him fighting sleep with high energy. At that time was talking to his ex considering rekindling the relationship. He reported increased hypersexual urges and thoughts of God. Reports trying to sleep with a cleaning lady and he was naked at the door when the lady's showed up. He reports a fall after trying to run through the door as if he was going to be able to go to [facility]. His roommate was there and witnessed this and calmed him down. EMS then arrived. He reports a history of feeling dizzy after lifting weights and would take minutes to recover. Reports past episode 2 years ago where he had delusions of God, lost 30 pounds, called off his wedding because of the thoughts. Around this time his fiance left him due to his mental state. Did not follow up with psychiatry afterwards. Reports anxiety in mother and that father is closed off and is unaware of his mental health. He denies history of seizures. Reports growing up in a bahai household and feels he has repressed sexual desires. Reports episode of depression after her first episode of potential gregory and did not seek treatment. Past ADHD diagnosis hyperactive type and was recently increased on medications. Recently started on increased dose of Zoloft for anxiety. Tolerating lamotrigine well. He denies history of seizures. He denies SI. Physical Exam Mental Examination Appearance: Well Groomed Eye Contact: Direct Eye Contact Motor Behavior: Unremarkable Speech: Normal Mood: Euthymic and Calm Affect: Congruent and Constricted Thought Process: Intact and Linear Thought Content: Intact Hallucinations: None Insight: Fair Judgement: Fair (to limited, improved) Vital Signs (Past 24 Hours) Last Vital Signs Temp 36.8 C 01/28/24 06:33 Pulse 72 01/28/24 06:33 Resp 16 01/28/24 06:33 BP 138/78 01/28/24 06:33 Pulse Ox 100 01/27/24 09:08 O2 Del Method Room Air 01/27/24 09:08 Results & Data ([facility]) Current Inpatient Medications Current Inpatient Medications: Current Inpatient Medications Acetaminophen (Acetaminophen 325 Mg Tab) 650 mg PO Q4H PRN PRN Reason: Headache or Minor Fever Stop: 02/24/24 16:59 Last Admin: 01/25/24 18:01 Dose: 650 mg Al Hydrox/Mg Hydrox/Simethicone (Aluminum/Magnesium Susp 30 Ml Udc) 30 ml PO Q4H PRN PRN Reason: GI Upset Stop: 02/24/24 16:59 Aripiprazole (Aripiprazole 5 Mg Tab) 5 mg PO QAM FEROZ Stop: 02/27/24 12:14 Bismuth Subsalicylate (Bismuth Subsalicylate 262 Mg Chew) 2 tab PO Q30M PRN PRN Reason: Loose Stool/Diarrhea Stop: 02/24/24 16:59 Hydroxyzine HCl (Hydroxyzine Hcl 25 Mg Tab) 50 mg PO HSZ PRN PRN Reason: Insomnia Stop: 02/24/24 16:59 Last Admin: 01/26/24 21:16 Dose: 50 mg Hydroxyzine HCl (Hydroxyzine Hcl 25 Mg Tab) 25 mg PO Q4H PRN PRN Reason: Anxiety Stop: 02/24/24 16:59 Last Admin: 01/27/24 19:37 Dose: 25 mg Lamotrigine (Lamotrigine 25 Mg Tab) 25 mg PO HS FEROZ; Protocol Stop: 02/26/24 21:59 Last Admin: 01/27/24 21:08 Dose: 25 mg Magnesium Hydroxide (Magnesium Hydroxide Susp 30 Ml Udc) 30 ml PO DAILY PRN PRN Reason: Constipation Stop: 02/24/24 16:59 Risperidone (Risperidone Odt 0.5 Mg Soltab) 0.5 mg PO BID PRN PRN Reason: agitation/psychosis Stop: 02/26/24 14:00 Sodium Chloride (Sodium Chloride 0.65% Na Soln 45 Ml ([place])) 1 - 2 sprays NA PRN PRN PRN Reason: Nasal Dryness/Congestion Stop: 02/24/24 16:59 Mental Health & Subst Abuse Tx Therapist Name of Therapist: Izaiah Mares Date of Therapist Appointment: 02/01/24 Oil Program Compliance Specialist Name of Oil Program Compliance Specialist: N/A Post Discharge Appointments Primary Care Physician Name Of Family Doctor/PCP: Dr. Braden (2) Psychosis Psychosis type: unspecified psychosis type Qualified Code(s): F29 - Unspecified psychosis not due to a substance or known physiological condition
[2024-01-28] MEDS: ARIPiprazole 5 MG TAB PO SCH (12:49)
[2024-01-29] MEDS: ARIPiprazole 10 MG TAB PO SCH (09:16)
--- NOTE | 2024-01-29 11:16 | Psychiatric Progress Note ---
Date of Service January 29, 2024 Impression / Recommendations Impression BLAISE AMBRIZ is a 29-year-old man who currently lives in [place], has a history of anxiety, depression and ADHD, and was admitted on 01/25/24 17:01 on a 201 voluntary commitment for bizarre behavior, concern for acute gregory. Presentation consistent with bipolar 1 disorder likely second episode of gregory. Concern for major depressive episodes in the past. He presented recent decreased need for sleep, high energy, hypersexuality, mu-ism preoccupation and delusions with rapid improvement with initiation of antipsychotic and sleep medication. Concern for higher risk of orthostatic hypotension as patient presented symptoms even in the absence of medications. A: Patient presents a stable mood state. Has some sleep onset problems due to anxious ruminations and as needed Vistaril was effective. Concern for depressive episode and teenage years which can be a common factor in bipolar disorder. Has been tolerating Abilify well with an improvement in anxious ruminations and no indication of akathisia. Patient was educated about medications and future treatment plan. He was counseled on behavioral strategies to combat ADHD without medication. Collateral gathered from parents and questions answered. Plan to increase daily abilify dose. MNPR-psychosis with recent hypersexual comments, recent disrobing prompting admission Overall, I spent a total of 40 minutes on this case including meeting with the patient, reviewing the chart, nursing report, multidisciplinary team meeting, orders, gathering collateral and documentation. (1) Bipolar I disorder with gregory: (2) Psychosis: (3) Hypersexuality: (4) Agitation: (5) Insomnia: (6) Orthostatic hypotension: (7) Bradycardia: Plan 01/29/2024: Increase aripiprazole to 10mg daily. 01/28/2024: Start aripiprazole 5 mg daily. Continue lamotrigine 25 mg daily. 01/27/2024: -Start lamictal 25mg HS po -Risperidone 0.5mg BID prn ODT for agitation/psychosis -Vitals q0600 daily 01/26/2024: The patient was admitted to the [facility] ([facility] health unit) on q15 min checks (behavioral with suicide precautions) for safety. The patient will participate in group, recreational, and milieu therapies and will be offered additional individual and family sessions as clinically appropriate. -Discontinue prior to admission sertraline, atomoxetine and propranolol -olanzapine 2.5mg BID po prn for acute agitation/aggression -Vital signs [id number] for next 12 hours and then back to daily vital signs if he continues to show stability -continue to monitor intake, encourage fluids. Counseled on need to change positions slowly which he is agreeable to do, has call [facility] to alert nursing to any needs -Low threshold for hospitalist consult should clinical symptoms change or vital sign abnormalities emerge Inventory Assets Strengths: supportive relationships, willing to get treatment Needs: safety and stabilization, medication adjustment, additional coping skills, increased outpatient services Suicide Risk Level Suicide Risk Level: Moderate (q15 min suicide checks) (denies SI but with psychosis and bizarre behaviors prior to admission, feels safe in the hospital, feels able to ask for support ) Suicide Risk Level Comments: Risk Factors Assessment Male: Yes : Yes Do You Have Access To A Gun?: Yes Health Problems: No Mental Health Diagnoses: Yes Substance Use Disorders: No Previous Attempt: No Family History of Suicide: No Previous Psychiatric Hospitalization: No Hopelessness: No Protective Factors Assessment Employed: Yes ([employer]) Stable Relationships: Yes Supportive Family: Yes Interval History Identifying Information BLAISE AMBRIZ is a 29-year-old man who currently lives in [place], has a history of anxiety, depression and ADHD, and was admitted on 01/25/24 17:01 on a 201 voluntary commitment for bizarre behavior, concern for acute gregory. Chief Complaint "Trouble falling asleep" Review of Systems Sleep Information Total Hours of Sleep: 5.25 Meal Information Percent Meal Consumed - Breakfast: 100 Percent Meal Consumed - Lunch: 100 Percent Meal Consumed - Dinner: 100 Subjective Subjective Patient was seen & assessed and interval progress reviewed with treatment team nursing and social work Patient reports having trouble falling asleep. [place] that as needed Vistaril was effective. Says may still be having elevated mood state. He rates mood 5 out of 10 and energy 5 out of 10. Feels that his anxiety has improved. Had questions about medications and was educated. We reflected on past depression he reports feeling depressed in sophomore and erika year where he had poor self-esteem and sleep complaints. At that time he did not realize how he felt. He reports past ADHD diagnosis. Physical Exam Mental Examination Appearance: Well Groomed Eye Contact: Direct Eye Contact Motor Behavior: Unremarkable Speech: Normal Mood: Euthymic and Calm Affect: Congruent and Constricted Thought Process: Intact and Linear Thought Content: Intact Hallucinations: None Insight: Fair Judgement: Fair (to limited, improved) Vital Signs (Past 24 Hours) Last Vital Signs Temp 36.6 C 01/29/24 06:33 Pulse 76 01/29/24 06:34 Resp 16 01/29/24 06:33 BP 112/68 01/29/24 06:34 Pulse Ox 100 01/27/24 09:08 O2 Del Method Room Air 01/27/24 09:08 Results & Data ([facility]) Current Inpatient Medications Current Inpatient Medications: Current Inpatient Medications Acetaminophen (Acetaminophen 325 Mg Tab) 650 mg PO Q4H PRN PRN Reason: Headache or Minor Fever Stop: 02/24/24 16:59 Last Admin: 01/25/24 18:01 Dose: 650 mg Al Hydrox/Mg Hydrox/Simethicone (Aluminum/Magnesium Susp 30 Ml Udc) 30 ml PO Q4H PRN PRN Reason: GI Upset Stop: 02/24/24 16:59 Aripiprazole (Aripiprazole 10 Mg Tab) 10 mg PO QAM FEROZ Stop: 02/28/24 08:59 Last Admin: 01/29/24 09:16 Dose: 10 mg Bismuth Subsalicylate (Bismuth Subsalicylate 262 Mg Chew) 2 tab PO Q30M PRN PRN Reason: Loose Stool/Diarrhea Stop: 02/24/24 16:59 Hydroxyzine HCl (Hydroxyzine Hcl 25 Mg Tab) 50 mg PO HSZ PRN PRN Reason: Insomnia Stop: 02/24/24 16:59 Last Admin: 01/29/24 02:36 Dose: 50 mg Hydroxyzine HCl (Hydroxyzine Hcl 25 Mg Tab) 25 mg PO Q4H PRN PRN Reason: Anxiety Stop: 02/24/24 16:59 Last Admin: 01/27/24 19:37 Dose: 25 mg Lamotrigine (Lamotrigine 25 Mg Tab) 25 mg PO HS FEROZ; Protocol Stop: 02/26/24 21:59 Last Admin: 01/28/24 21:03 Dose: 25 mg Magnesium Hydroxide (Magnesium Hydroxide Susp 30 Ml Udc) 30 ml PO DAILY PRN PRN Reason: Constipation Stop: 02/24/24 16:59 Risperidone (Risperidone Odt 0.5 Mg Soltab) 0.5 mg PO BID PRN PRN Reason: agitation/psychosis Stop: 02/26/24 14:00 Sodium Chloride (Sodium Chloride 0.65% Na Soln 45 Ml ([place])) 1 - 2 sprays NA PRN PRN PRN Reason: Nasal Dryness/Congestion Stop: 02/24/24 16:59 Mental Health & Subst Abuse Tx Therapist Name of Therapist: Izaiah Mares Date of Therapist Appointment: 02/01/24 Ore Smelter Name of Ore Smelter: N/A Post Discharge Appointments Primary Care Physician Name Of Family Doctor/PCP: Dr. Braden (2) Psychosis Psychosis type: unspecified psychosis type Qualified Code(s): F29 - Unspecified psychosis not due to a substance or known physiological condition
--- NOTE | 2024-01-30 09:26 | Discharge Summary ---
Date of Service January 30, 2024 History of Present Illness Feliciano presents for psychiatric admission for sudden bizarre behavior after a few days of very poor sleep. He doesn't have much memory of events leading to hospitalization but recalls that his roommate was there and then police arrived. He confirms making some type of sexual comment to a cleaning lady who came to his apartment and that later her came to the door and he answered the door while nude and this man took a picture of him. He recalls only sleeping about an hour per night on Tuesday and Tuesday prior to admission. Denies any significant recent stressors. Only recent change was increase of his sertraline dose from 25mg daily to 50mg daily on 01/20/2024 and he was also started on atomoxetine at that time. While in the emergency department he was observed to be agitated and with symptoms of gregory and was given haldol and ativan with quite significant improvement. This morning, he reported increased lightheadedness and was observed to have low BP and low heart rate. He reported feeling sedated and faint but denied any o ther complaints. He drank more water and ate some food and started to feel better. He was agreeable with lying in his bed and was glad to be able to sleep and rest more. He is currently prescribed psychiatric medications of sertraline 50mg daily, propranolol prn for anxiety and atomoxetine. Psychiatric ROS notable for history of symptoms of gregory and psychosis about 3 years ago, he describes for about a week he thought "God was telling me to break up with my fiance and I didn't sleep much and I went on kind of yazdanism fast for a week without eating" but then his symptoms resolved without requiring hospitalization. Depression started in college, long history of anxiety. Additional information per ED CM note on 01/25/2024: "Patient reports to ED via EMS with roommate. Patient uncooperative with Dr. Mckeon. Per EMS report, patient answered the door for the cleaning lady naked, making inappropriate sexual comments to her. Patient spoke with cleaning lady's and informed him that his was patient's now. Patient's roommate was present. Reports patient's behaviors have been "off" for a few days now, he has been living with patient for 1.5 years and his current behaviors are unusual for him. Per roommate, patient's ADHD medication was just changed. Patient interrupted roommate as he was trying to explain patient's current situation. Patient appeared manic and tangential. Patient denied D/A use currently. Patient stated several times he "has no idea what's going on." He states he felt like this whole experience was "like a dance." Patient denies any current health issues. He denies any current stressors. Patient was religiously preoccupied. He stated his mother was on her way, but that she lives in the [facility]. He then stated he felt better being in the presence of CM and his roommate as he felt he was with the "Father, son and holy spirit." " Additional information per psych liason horse race timer note last evening on : "Patient up and out of bed. Asking this nurse what he was able to do? Gave tour of activity room and while showing patient the activities, he said, "I feel weird asking this but is there anyway I could have my sexual needs met here? "Is there a way you could do that for me? Patient redirected and medication given by charge nurse." Physical Exam Mental Examination Appearance: Well Groomed Eye Contact: Direct Eye Contact Motor Behavior: Unremarkable Speech: Normal Mood: Euthymic and Calm Affect: Congruent and Constricted Thought Process: Intact and Linear Thought Content: Intact Hallucinations: None Insight: Fair Judgement: Fair (to limited, improved) Vital Signs (Past 24 Hours) Last Vital Signs Temp 36.7 C 01/30/24 06:28 Pulse 73 01/30/24 06:29 Resp 16 01/30/24 06:28 BP 117/72 01/30/24 06:29 Pulse Ox 100 01/27/24 09:08 O2 Del Method Room Air 01/27/24 09:08 Principal Diagnosis Bipolar 1 Disorder Psychiatric Data See daily stay summary. In short, safety was maintained and the patient was cooperative with care. Medication changes included starting Aripiprazole 10mg HS, Lamotrigine 25mg daily and they tolerated this well. A family session was held and safety plan was completed prior to discharge. Patient presented with likely 2nd episode of gregory with associated yazdanism and persecutory delusions, poor reality testing, hypersexuality. He responded well to antipsychotic and sleep medications with rapid improvement in symptoms and return to stable mental state. He presents major depressive episodes in the past and was started on Lamotrigine. Recent manic episode may have been precipitated by increase in Sertraline and initiation of Atomoxetine for ADHD; both were d/c. He was educated about his diagnosis, importance of sleep hygiene and stress management, and medication adherence. He presents postural hypotensions problems at baseline even when not medicated and was presented an incident in the hospital where his pulse and BP dropped after treatment for psychosis and behaviors. He was advised to inform future physicians of this sensitivity and orthostatic hypotension concerns were involved when making treatment decisions for his bipolar condition. Day of Discharge Assessment Today the patient voices readiness for discharge. They note improvement in mood and deny thoughts to harm self or others. Thoughts remain organized and they are improved from admission. There is no evidence of psychosis. They agree to take mediations as prescribed and keep follow-up appointments. They are stable for discharge to outpatient level of care. Transition of Care Transition Of Care Record: was reviewed with the patient Advance Directives Advance Directives Information Provided: Yes Advance Directives: No Mental Health Advance Directive: No Advance Directives on File: No Living Will: No Power of Packing And Shipping Clerk: No Advance Directives Reason:: Declines as Mental Health Visit. Suicide Risk Level Suicide Risk Level Comments: Risk Factors Assessment Male: Yes : Yes Do You Have Access To A Gun?: Yes Health Problems: No Mental Health Diagnoses: Yes Substance Use Disorders: No Previous Attempt: No Family History of Suicide: No Previous Psychiatric Hospitalization: No Hopelessness: No Protective Factors Assessment Employed: Yes ([employer]) Stable Relationships: Yes Supportive Family: Yes Discharge Data Lab Results 01/25/24 01/25/24 01/26/24 12:05 12:30 09:11 WBC 9.18 RBC 5.50 Hgb 16.7 Hct 46.9 MCV 85.3 MCH 30.4 MCHC 35.6 RDW Std Deviation 36.0 L RDW Coeff of Roderick 11.6 Plt Count 297 MPV 9.8 Immature Gran % (Auto) 0.2 Neut % (Auto) 64.0 Lymph % (Auto) 27.2 Green % (Auto) 8.1 Eos % (Auto) 0.1 Baso % (Auto) 0.4 Neut # (Auto) 5.87 Lymph # (Auto) 2.50 Green # (Auto) 0.74 H Eos # (Auto) 0.01 Baso # (Auto) 0.04 Immature Gran # (Auto) 0.02 Sodium 136 Potassium 3.6 Chloride 102 Carbon Dioxide 27 Anion Gap 7 BUN 12 Creatinine 0.95 Est Cr Clr Drug Dosing 130.5 eGFR 112.51 BUN/Creatinine Ratio 12.6 Glucose 108 H POC Glucose 102 H Calcium 10.4 H Total Bilirubin 1.2 H AST 25 ALT 22 Alkaline Phosphatase 55 Total Protein 8.5 H Albumin 5.3 H Globulin 3.2 Albumin/Globulin Ratio 1.7 TSH 3.408 Urine Color Yellow Urine Appearance Clear Urine pH 7.5 Ur Specific [place] 1.025 Urine Protein Trace H Urine Glucose (UA) Negative Urine Ketones Trace H Urine Blood Negative Urine Nitrite Negative Urine Bilirubin Negative Urine Urobilinogen Negative Ur Leukocyte Esterase Trace H Urine WBC (Auto) 0-5 Urine RBC (Auto) 0-2 U Hyaline Cast (Auto) 0-2 U Epithel Cells (Auto) 0-2 Urine Bacteria (Auto) None Seen Salicylates < 3.0 L Urine Opiates Screen Neg Ur Methadone, Qual Neg Urine Fentanyl Screen Neg Acetaminophen < 3 L Urine Barbiturates Neg Ur Phencyclidine (PCP) Neg U Amphetamin/Meth Scrn Neg MDMA (Ecstasy) Screen Neg U Benzodiazepines Scrn Neg Ur Cocaine Metabolite Neg U Marijuana (THC) Screen Neg Ethyl Alcohol mg/dL < 10.0 SARS-CoV-2, RNA, NAAT NEGATIVE Hospital Course (1) Bipolar I disorder with gregory: (2) Psychosis: (3) Hypersexuality: (4) Insomnia: (5) Orthostatic hypotension: Plan 01/29/2024: Increase aripiprazole to 10mg daily. 01/28/2024: Start aripiprazole 5 mg daily. Continue lamotrigine 25 mg daily. 01/27/2024: -Start lamictal 25mg HS po -Risperidone 0.5mg BID prn ODT for agitation/psychosis -Vitals q0600 daily 01/26/2024: The patient was admitted to the [facility]) on q15 min checks (behavioral with suicide precautions) for safety. The patient will participate in group, recreational, and milieu therapies and will be offered additional individual and family sessions as clinically appropriate. -Discontinue prior to admission sertraline, atomoxetine and propranolol -olanzapine 2.5mg BID po prn for acute agitation/aggression -Vital signs [id number] for next 12 hours and then back to daily vital signs if he continues to show stability -continue to monitor intake, encourage fluids. Counseled on need to change positions slowly which he is agreeable to do, has call horvath to alert nursing to any needs -Low threshold for hospitalist consult should clinical symptoms change or vital sign abnormalities emerge Mental Health & Subst Abuse Tx Psychiatrist Name of Psychiatrist: Liliana Dale Psychiatrist's Therapist Name of Therapist: [facility] Room-Izaiah Mares Therapist's Date of Therapist Appointment: 02/01/24 Robotic Maintenance Technician Name of Robotic Maintenance Technician: N/A Post Discharge Appointments Primary Care Physician Name Of Family Doctor/PCP: Dr. Braden Discharge Plan Discharge Items Patient Disposition: Home - Self-Care Reason For Visit: PSYCHOSIS Discharge Diagnosis: Bipolar I disorder with gregory: Insomnia: Racing thoughts: Orthostatic hypotension: Condition on Discharge: Good Activity: Resume your previous activity Non-emergency contact: Primary Care Provider, Psychiatrist and Therapist Call non-emergency contact if: you have any medication questions and your symptoms worsen Follow-up/Referrals: Marylu Zavala DO [Primary Care Provider] - Diet: Regular Addtl Attending Provider Instructions: Continue Aripiprazole 10mg at bedtime Continue Lamotrigine 25mg at bedtime for 1 week, then increase to 50mg SLEEP/ANXIETY -Take Hydroxyzine 50mg NEEDED for sleep and anxiety (may take half dose if too strong) -Follow-up with psychiatry, therapist -Work on sleep hygiene practices Pending Studies at Discharge: No Stand-Alone Forms: [facility], Smoking Cessation Medications and DC Order Prescriptions: New aripiprazole [Abilify] 10 mg Tablet 10 mg PO HS Qty: 30 0RF hydroxyzine HCl 50 mg tablet 50 mg PO BID PRN (Reason: anxiety/insomnia) Qty: 60 0RF lamotrigine [Lamictal] 25 mg Tablet See Rx Instructions .ROUTE .COMPLEX Qty: 35 0RF Rx Instructions: take 25mg at bedtime for 1 week, then take 50mg at bedtime for 2 weeks Discontinued propranolol 10 mg tablet 10 mg PO BID sertraline [Zoloft] 50 mg tablet 50 mg PO DAILY atomoxetine 25 mg capsule 25 mg PO DAILY Discharge Orders: Discharge Order (Routine); Ordered 01/30/24 Ordered By: Keagan Shaikh Admission Data Admit Date/Time: 01/25/24 17:01 Attending Provider: Keagan Shaikh Admit Provider: Arabella Anaya Primary Care Provider: Marylu Zavala Other Interventions: Discharge Summary Assessment (RN) Last Done: 01/30/24 12:10 PSY Interdisciplinary Discharge Planning Last Done: 01/30/24 12:15 Coding [place] [address] D/C day mgmt > 30 min Patient Type Established History Comprehensive Exam Comprehensive Medical Decision Making High Complexity Diagnoses Bipolar I disorder with gregory F31.10 Psychosis F29 Psychosis type: unspecified psychosis type Hypersexuality F52.8 Insomnia G47.00 Orthostatic hypotension I95.1
== END 2024-01-30 12:37 | disposition home or self-care (01) | DRG 885 ==
LOC: ED 12:17 → SUATTDRO 17:01 → 3S 17:01